=== PATIENT | female | born 1960 | race African-American/Black ===

== ENCOUNTER 2021-01-08 19:30 | Inpatient (IN) ==
[2021-01-08] MEDS ORDERED: ZALEPLON 5 MG CAPSULE PO PRN (22:49)
[2021-01-08] MEDS ORDERED: DOCUSATE SODIUM 100 MG CAPSULE PO PRN (22:49)
[2021-01-08] MEDS ORDERED: ALUMINUM/MAGNES/SIMETH MAX STR 30 ML UDCUP PO PRN (22:49)
[2021-01-08] MEDS ORDERED: GLUCAGON 1 MG VIAL IM PRN (22:49)
[2021-01-08] MEDS ORDERED: DEXTROSE 50% 25 GM/50 ML VIAL IV PRN (22:49)
[2021-01-08] MEDS ORDERED: ACETAMINOPHEN 325 MG TABLET PO PRN (22:49)
[2021-01-09] MEDS ORDERED: MAGNESIUM SULF RIDER 4 GM in PREMIX 1 EACH IV PRN (00:02)
[2021-01-09] MEDS ORDERED: MAGNESIUM SULF RIDER 2 GM in PREMIX 1 EACH IV PRN (00:02)
[2021-01-09] MEDS ORDERED: POTASSIUM CHLORIDE 20 MEQ TABLET PO ONE (00:32)
[2021-01-09] MEDS ORDERED: POTASSIUM CHLORIDE 20 MEQ TABLET PO PRN (00:32)
[2021-01-09] MEDS ORDERED: ALBUTEROL/IPRATROPIUM 3 ML NEB RESP TX PRN (01:26)
[2021-01-09] MEDS: ENOXAPARIN 60 MG/0.6 ML SYRINGE SUBCUT SCH ×3 (02:05→21:22)
[2021-01-09] MEDS ORDERED: NITROGLYCERIN SL 0.4 MG TABLET SL PRN (07:18)
[2021-01-09 07:34] LABS: Basophils # 0.1 10*3/uL (0.0-0.2); Basophils % 0.7 % (0.0-0.8); Eosinophils # 0.3 10*3/uL (0.0-0.87); Hematocrit 33.2 VOL% (35.7-47.0); Hemoglobin 10.5 GM/DL (12.0-16.0); Immature Granulocytes % 0.5 %; Immature Granulocytes Absolute 0.04 #; Lymphocytes # 1.7 10*3/uL (1.4-4.0); Mean Corpuscular HGB Conc 31.6 GM/DL (32-36); Mean Corpuscular Volume 84.5 FL (87-102); Mean Platelet Volume 11.5 FL (9.6-12.0); Monocytes % 8.7 % (1.7-12.7); Neutrophils % 67.1 % (38.7-73.9); Platelet Count 325 T/CUMM (130-400); Red Blood Count 3.93 MC/CUMM (3.8-5.5); Red Cell Distribution Width 13.5 % (9.3-17.3); White Blood Count 8.4 T/CUMM (4-12)
[2021-01-09 08:04] LABS: Albumin 1.9 G/DL (3.4-5.0); Bilirubin,Total 0.5 MG/DL (0.2-1.0); Calcium 8.1 MG/DL (8.5-10.1); Osmolality,Calculated 285.5 MOS/KG (273-304)
[2021-01-09 08:06] LABS: Potassium 2.5 MMOL/L (3.5-5.1); Risk Ratio 3.19; VLDL CHOLESTEROL 18.2 MG/DL
[2021-01-09] MEDS: FUROSEMIDE 40 MG/4 ML VIAL IV SCH ×2 (08:19→16:56)
[2021-01-09] MEDS: INSULIN REGULAR 100 UNIT/ML SUBCUT SCH ×4 (08:24→21:22)
[2021-01-09] MEDS ORDERED: amLODIPine 10 MG TABLET PO SCH (09:00)
[2021-01-09] MEDS ORDERED: ASPIRIN EC 325 MG TABLET PO SCH (09:00)
[2021-01-09] MEDS: ASPIRIN EC 81 MG TABLET PO SCH (09:33)
[2021-01-09] MEDS: OLMESARTAN 20 MG TABLET PO SCH (09:33)
[2021-01-09] MEDS: POTASSIUM CHLORIDE 20 MEQ TABLET PO SCH ×3 (09:33→21:22)
[2021-01-09] MEDS: PANTOPRAZOLE 40 MG TABLET PO SCH (09:34)
[2021-01-09] MEDS: METOPROLOL TARTRATE 25 MG TABLET PO SCH ×2 (09:34→21:21)
[2021-01-09] MEDS: CLOPIDOGREL 75 MG TABLET PO SCH (09:34)
[2021-01-09] MEDS: GABAPENTIN 400 MG CAPSULE PO SCH ×4 (09:34→21:21)
[2021-01-09] MEDS: ISOSORBIDE MONONITRATE 30 MG TABLET PO SCH (14:12)
[2021-01-09] MEDS: SPIRONOLACTONE 25 MG TABLET PO SCH (14:12)
[2021-01-09 14:42] LABS: Potassium 2.8 MMOL/L (3.5-5.1)
[2021-01-09] MEDS ORDERED: POTASSIUM CHLORIDE 20 MEQ PACK PO ONE (19:32)
[2021-01-09] MEDS ORDERED: INSULIN GLARGINE 100 UNIT/ML SUBCUT SCH (21:00)
[2021-01-09] MEDS ORDERED: ATORVASTATIN 40 MG TABLET PO SCH (21:00)
[2021-01-09] MEDS: MAGNESIUM OXIDE 400 MG TABLET PO SCH (21:21)
[2021-01-10 05:35] LABS: Basophils % 0.4 % (0.0-0.8); Eosinophils # 0.3 10*3/uL (0.0-0.87); Eosinophils % 2.8 % (0.00-10.9); Hematocrit 29.5 VOL% (35.7-47.0); Hemoglobin 9.2 GM/DL (12.0-16.0); Immature Granulocytes % 0.5 %; Immature Granulocytes Absolute 0.05 #; Lymphocytes # 2.8 10*3/uL (1.4-4.0); Lymphocytes % 27.7 % (21.3-54.2); Mean Corpuscular HGB Conc 31.2 GM/DL (32-36); Mean Platelet Volume 11.9 FL (9.6-12.0); Monocytes % 10.3 % (1.7-12.7); Neutrophils % 58.3 % (38.7-73.9); Platelet Count 300 T/CUMM (130-400); Red Blood Count 3.39 MC/CUMM (3.8-5.5); White Blood Count 10.3 T/CUMM (4-12)
[2021-01-10 06:11] LABS: Albumin 1.7 G/DL (3.4-5.0); Bilirubin,Total 0.9 MG/DL (0.2-1.0); Calcium 8.1 MG/DL (8.5-10.1); Potassium 3.9 MMOL/L (3.5-5.1); Total Protein 5.3 G/DL (6.4-8.3)
[2021-01-10] MEDS: INSULIN REGULAR 100 UNIT/ML SUBCUT SCH ×4 (07:48→21:33)
[2021-01-10] MEDS: OLMESARTAN 20 MG TABLET PO SCH (08:39)
[2021-01-10] MEDS: ISOSORBIDE MONONITRATE 30 MG TABLET PO SCH (08:39)
[2021-01-10] MEDS: METOPROLOL TARTRATE 25 MG TABLET PO SCH ×2 (08:41→21:33)
[2021-01-10] MEDS: SPIRONOLACTONE 25 MG TABLET PO SCH (08:41)
[2021-01-10] MEDS: ASPIRIN EC 81 MG TABLET PO SCH (08:41)
[2021-01-10] MEDS: MAGNESIUM OXIDE 400 MG TABLET PO SCH ×2 (08:41→21:33)
[2021-01-10] MEDS: PANTOPRAZOLE 40 MG TABLET PO SCH (08:42)
[2021-01-10] MEDS: GABAPENTIN 400 MG CAPSULE PO SCH ×4 (08:42→21:33)
[2021-01-10] MEDS: ENOXAPARIN 60 MG/0.6 ML SYRINGE SUBCUT SCH (08:42)
[2021-01-10] MEDS: CLOPIDOGREL 75 MG TABLET PO SCH (08:42)
[2021-01-10] MEDS: FUROSEMIDE 40 MG/4 ML VIAL IV SCH (08:43)
[2021-01-10] MEDS: predniSONE 20 MG TABLET PO SCH (11:50)
[2021-01-10] MEDS: AZITHROMYCIN 250 MG TABLET PO SCH (11:50)
[2021-01-10] MEDS: ONDANSETRON 4 MG/2 ML VIAL IV PRN (18:14)
[2021-01-10] MEDS ORDERED: hydrALAZINE 20 MG/1 ML VIAL IV PRN (20:42)
[2021-01-10] MEDS: INSULIN GLARGINE 100 UNIT/ML SUBCUT SCH (21:33)
[2021-01-10] MEDS: ATORVASTATIN 80 MG TABLET PO SCH (21:33)
[2021-01-11 05:53] LABS: Basophils % 0.2 % (0.0-0.8); Eosinophils % 0.1 % (0.00-10.9); Hematocrit 31.1 VOL% (35.7-47.0); Hemoglobin 9.9 GM/DL (12.0-16.0); Immature Granulocytes % 0.4 %; Immature Granulocytes Absolute 0.06 #; Lymphocytes # 1.9 10*3/uL (1.4-4.0); Lymphocytes % 13.1 % (21.3-54.2); Mean Corpuscular HGB Conc 31.8 GM/DL (32-36); Mean Corpuscular Volume 84.5 FL (87-102); Mean Platelet Volume 11.8 FL (9.6-12.0); Monocytes % 6.1 % (1.7-12.7); Neutrophils % 80.1 % (38.7-73.9); Platelet Count 325 T/CUMM (130-400); Red Blood Count 3.68 MC/CUMM (3.8-5.5); Red Cell Distribution Width 14.1 % (9.3-17.3); White Blood Count 14.3 T/CUMM (4-12)
[2021-01-11 06:15] LABS: Calcium 8.5 MG/DL (8.5-10.1); Osmolality,Calculated 284.7 MOS/KG (273-304); Potassium 3.6 MMOL/L (3.5-5.1)
[2021-01-11] MEDS: GABAPENTIN 400 MG CAPSULE PO SCH ×4 (09:30→21:48)
[2021-01-11] MEDS: ASPIRIN EC 81 MG TABLET PO SCH (09:36)
[2021-01-11] MEDS: AZITHROMYCIN 250 MG TABLET PO SCH (09:37)
[2021-01-11] MEDS: METOPROLOL TARTRATE 25 MG TABLET PO SCH ×2 (09:37→21:48)
[2021-01-11] MEDS: MAGNESIUM OXIDE 400 MG TABLET PO SCH ×2 (09:37→21:48)
[2021-01-11] MEDS: CLOPIDOGREL 75 MG TABLET PO SCH (09:37)
[2021-01-11] MEDS: ISOSORBIDE MONONITRATE 30 MG TABLET PO SCH (09:38)
[2021-01-11] MEDS: predniSONE 20 MG TABLET PO SCH (09:40)
[2021-01-11] MEDS: INSULIN REGULAR 100 UNIT/ML SUBCUT SCH ×4 (09:40→21:49)
[2021-01-11] MEDS: SODIUM CHLORIDE 0.9% 1,000 ML IV SCH ×2 (13:44→21:47)
[2021-01-11] MEDS ORDERED: INFLUENZA VIRUS VACCINE 0.5 ML SYRINGE IM ONE (15:47)
[2021-01-11] MEDS: ONDANSETRON 4 MG/2 ML VIAL IV PRN (18:38)
[2021-01-11] MEDS: ATORVASTATIN 80 MG TABLET PO SCH (21:47)
[2021-01-11] MEDS: INSULIN GLARGINE 100 UNIT/ML SUBCUT SCH (21:49)
[2021-01-12] MEDS: SODIUM CHLORIDE 0.9% 1,000 ML IV SCH (06:30)
[2021-01-12 07:12] LABS: Calcium 8.5 MG/DL (8.5-10.1); Potassium 3.7 MMOL/L (3.5-5.1)
[2021-01-12] MEDS: MAGNESIUM OXIDE 400 MG TABLET PO SCH ×2 (09:02→21:06)
[2021-01-12] MEDS: predniSONE 20 MG TABLET PO SCH (09:02)
[2021-01-12] MEDS: AZITHROMYCIN 250 MG TABLET PO SCH (09:02)
[2021-01-12] MEDS: METOPROLOL TARTRATE 25 MG TABLET PO SCH ×2 (09:02→21:06)
[2021-01-12] MEDS: SPIRONOLACTONE 25 MG TABLET PO SCH (09:03)
[2021-01-12] MEDS: GABAPENTIN 400 MG CAPSULE PO SCH ×4 (09:03→21:06)
[2021-01-12] MEDS: ISOSORBIDE MONONITRATE 30 MG TABLET PO SCH (09:04)
[2021-01-12] MEDS: INSULIN REGULAR 100 UNIT/ML SUBCUT SCH ×4 (09:04→21:08)
[2021-01-12] MEDS: ASPIRIN EC 81 MG TABLET PO SCH (09:04)
[2021-01-12] MEDS: CLOPIDOGREL 75 MG TABLET PO SCH (09:04)
[2021-01-12] MEDS: ATORVASTATIN 80 MG TABLET PO SCH (21:06)
[2021-01-12] MEDS: INSULIN GLARGINE 100 UNIT/ML SUBCUT SCH (21:07)
[2021-01-12] MEDS: POLYETHYLENE GLYCOL POWDER 17 GM PACK PO SCH (21:20)
[2021-01-12] MEDS: ONDANSETRON 4 MG/2 ML VIAL IV PRN (22:52)
[2021-01-13 06:25] LABS: Basophils % 0.1 % (0.0-0.8); Eosinophils % 0.1 % (0.00-10.9); Hematocrit 31.9 VOL% (35.7-47.0); Hemoglobin 9.7 GM/DL (12.0-16.0); Immature Granulocytes % 0.9 %; Immature Granulocytes Absolute 0.13 #; Lymphocytes # 2.1 10*3/uL (1.4-4.0); Lymphocytes % 14.7 % (21.3-54.2); Mean Corpuscular HGB Conc 30.4 GM/DL (32-36); Mean Corpuscular Volume 88.1 FL (87-102); Mean Platelet Volume 12.1 FL (9.6-12.0); Neutrophils % 77.2 % (38.7-73.9); Platelet Count 397 T/CUMM (130-400); Red Blood Count 3.62 MC/CUMM (3.8-5.5); Red Cell Distribution Width 14.2 % (9.3-17.3); White Blood Count 14.2 T/CUMM (4-12)
[2021-01-13 06:58] LABS: Albumin 1.9 G/DL (3.4-5.0); Bilirubin,Total 1.1 MG/DL (0.2-1.0); Calcium 8.7 MG/DL (8.5-10.1); Potassium 4.2 MMOL/L (3.5-5.1); Total Protein 6.2 G/DL (6.4-8.3)
[2021-01-13] MEDS: INSULIN REGULAR 100 UNIT/ML SUBCUT SCH ×3 (08:31→16:49)
[2021-01-13] MEDS: OLMESARTAN 20 MG TABLET PO SCH (08:33)
[2021-01-13] MEDS: GABAPENTIN 400 MG CAPSULE PO SCH ×3 (08:33→16:55)
[2021-01-13] MEDS: ASPIRIN EC 81 MG TABLET PO SCH (08:33)
[2021-01-13] MEDS: MAGNESIUM OXIDE 400 MG TABLET PO SCH (08:33)
[2021-01-13] MEDS: PANTOPRAZOLE 40 MG TABLET PO SCH ×2 (08:34→16:55)
[2021-01-13] MEDS: ISOSORBIDE MONONITRATE 30 MG TABLET PO SCH (08:34)
[2021-01-13] MEDS: AZITHROMYCIN 250 MG TABLET PO SCH (08:34)
[2021-01-13] MEDS: CLOPIDOGREL 75 MG TABLET PO SCH (08:34)
[2021-01-13] MEDS: predniSONE 20 MG TABLET PO SCH (08:34)
[2021-01-13] MEDS: SPIRONOLACTONE 25 MG TABLET PO SCH (08:34)
[2021-01-13] MEDS: METOPROLOL TARTRATE 25 MG TABLET PO SCH (08:34)
[2021-01-13] MEDS: POLYETHYLENE GLYCOL POWDER 17 GM PACK PO SCH ×2 (08:55→16:48)
[2021-01-13 17:01] VITALS: BP 121/28
== END 2021-01-13 18:37 | disposition home or self-care (01) | DRG 280 ==
LOC: SUATTDRO 21:59 → N.TELEN 21:59
PROVIDERS: ADMIT Internal Medicine; ATTEND Internal Medicine Geriatric Medicine